=== PATIENT | female | born 1970 ===

== ENCOUNTER 2020-05-30 17:24 | Emergency (ER) | payer OTHER ==
[~2020-05-30] VITALS: Ht 154.9 cm; Wt 55.3 kg
[2020-05-30] MEDS ORDERED: CHILDREN'S ASPI81 MG (17:58)
[2020-05-30] MEDS ORDERED: PEPCID AC20 MG PO (20:36)
[2020-05-30] MEDS ORDERED: CARAFATE1 GM PO (20:36)
== END 2020-05-30 20:58 | disposition home or self-care (01) ==
LOC: ER 17:24
DX: K29.60 Other gastritis without bleeding (principal); Z03.818 Encounter for observation for suspected exposure to other biological agents ruled out